=== PATIENT | female | born 1965 | race African-American/Black ===

== ENCOUNTER 2023-09-22 12:14 | Emergency (ER) | payer MEDICAID ==
[~2023-09-22] VITALS: Ht 157.5 cm; Wt 72.0 kg
[2023-09-22 12:27] VITALS: BP 180/105; PULSE 70; TEMP 98.7; O2SAT 100
[2023-09-22 13:20] LABS: BASOPHILS % 0.6 % (0.0-2.0); EOSINOPHILS % 2.3 % (0.0-5.0); HEMATOCRIT. 40.6 % (36.0-48.0); HEMOGLOBIN. 13.5 g/dL (12.0-16.0); LYMPHOCYTES % 25.5 % (20.0-50.0); MEAN CORPUSCULAR HEMOGLOBIN 29.2 pg (28.0-32.0); MEAN CORPUSCULAR HGB CONC 33.1 g/dL (31.0-37.0); MEAN CORPUSCULAR VOLUME 88.2 fL (81.0-99.0); MEAN PLATELET VOLUME 9.7 fl (7.4-10.4); MONOCYTES % 7.2 % (2.0-8.0); NEUTROPHILS % 64.4 % (40.0-76.0); PLATELET 189 x1000/uL (130-400); RED BLOOD CELL COUNT 4.61 mill/uL (4.2-5.4); RED CELL DISTRIBUTION WIDTH 13.7 % (11.6-14.6); WHITE BLOOD COUNT 6.4 x1000/uL (4.5-11.0)
[2023-09-22 13:26] LABS: CLARITY URINE CLEAR (CLEAR); COLOR URINE YELLOW (YELLOW); GLUCOSE URINE NEGATIVE (NEGATIVE); KETONES URINE NEGATIVE (NEGATIVE); LEUKOCYTE ESTERASE URINE NEGATIVE (NEGATIVE); NITRITE URINE NEGATIVE (NEGATIVE); OCCULT BLOOD URINE NEGATIVE (NEGATIVE); PH URINE 7.5 (4.5-8.0); PROTEIN URINE NEGATIVE (NEGATIVE); SPECIFIC GRAVITY URINE 1.012 (1.005-1.030)
[2023-09-22 13:44] LABS: CHLORIDE 107 mEq/L (98-107); POTASSIUM 4.1 mEq/L (3.5-5.1); SODIUM 140 mEq/L (136-145)
[2023-09-22 13:45] LABS: CALCIUM 9.3 mg/dL (8.7-10.4); CARBON DIOXIDE 27 mEq/L (21-32)
[2023-09-22 13:50] LABS: CREATININE 0.7 mg/dL (0.6-1.0); GLUCOSE 78 mg/dL (70-105); UREA NITROGEN BLOOD 7 mg/dL (9-23)
[2023-09-22] MEDS: BACITRACIN ZINC OINT UDPKT TOP ONE (14:00)
[2023-09-22] MEDS: LIDOCAINE HCL/PF 1% 10 MG/ML 5ML VIAL INFIL ONE (14:00)
[2023-09-22] MEDS ORDERED: MUPI22OI2 TP (15:11)
[2023-09-22] MEDS ORDERED: NIZOS TP (15:11)
== END 2023-09-22 16:21 | disposition home or self-care (01) ==
LOC: ER 12:14
DX: L73.9 Follicular disorder, unspecified (principal)
CPT/HCPCS: 80048; 81003; 85025; 36415; 99283; J3490; Z7610 ×2